=== PATIENT | male | born 2000 | race Two or more races ===

== ENCOUNTER 2019-10-05 16:07 | Emergency (ER) | payer OTHER ==
[~2019-10-05] VITALS: Ht 182.9 cm; Wt 94.8 kg
[2019-10-05] MEDS ORDERED: ADALAT CC30 MG (16:25)
[2019-10-05] MEDS ORDERED: ZESTRIL40 M1 (16:26)
== END 2019-10-05 18:01 | disposition home or self-care (01) ==
LOC: ER 16:07
DX: M54.5 Low back pain (principal); R07.89 Other chest pain